=== PATIENT | female | born 1975 | race Caucasian/White ===

== ENCOUNTER 2017-02-12 18:00 | Inpatient (IN) | payer MEDICAID ==
[~2017-02-12] VITALS: Ht 162.6 cm; Wt 69.8 kg
--- NOTE | ~2017-02-12 | CON ---
PATIENT'S NAME: BONNIE MESA [facility] AGE: 41 Y [address] ROOM: [address] [place] [id number] LOCATION: GPCU ADMIT DATE: 02/12/2017 Consultation DISCHARGE DATE: FAMILY PHYSICIAN: PHYSICIAN, UNKNOWN ATTENDING PHYSICIAN: DEANNA ELIZABETH DATE OF CONSULTATION: 02/13/2017 REFERRING PHYSICIAN: Alireza Swan MD The patient was seen at 3:00 p.m. on 02/13/2017. HISTORY OF PRESENT ILLNESS: This is a 41-year-old female patient with an extensive psychiatric history including depression, anxiety, and schizoaffective disorder. She was in her usual state of health when her mother had gone out of the home early in the morning and found her back at the house around 1 lethargic and nonresponsive to stimuli. When she came to the emergency room, she was still lethargic and confused. She was found on laboratory results to have an elevation in her CPK level to 1645 as well as a white count elevation to 20.5, slight elevation in liver enzymes to 64. When she was initially seen last night and even into the morning, she was still lethargic, however, at the time of my seeing her in the afternoon today, she is fully back to her baseline. She is watching TV and answers all questions appropriately. There is a question as to whether the patient is suicidal but however the patient absolutely denies any suicidal ideations. She cannot tell me as to why she was here and really did not know why she came to the hospital. All she described right now is some feeling of being a bit beat up with some more back pain. It is known that the patient does take Ultram as well as Clozaril 100 mg in the a.m., 200 mg in the p.m., as well as fluoxetine, combination of known tramadol with fluoxetine in long- term use can be leading to a seizure. Thus, the possibility of a generalized seizure at home could certainly have been taken place. The issue as to whether the patient has a neuroleptic malignant syndrome is unlikely based upon her presentation now with normal mental status and normal tone in the limbs. PAST MEDICAL HISTORY: As mentioned, depression, anxiety, schizoaffective disorder. MEDICATIONS: At home include Clozaril 100 mg in the a.m., 200 mg in the p.m.; unknown dosing for Topamax; Ultram; trazodone; fluoxetine; meloxicam, and guanfacine. SOCIAL HISTORY: She is never . She does not have children. She lives with her mother. 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 ROOM: [place] [address] LOCATION: GPCU ADMIT DATE: 02/12/2017 Consultation DISCHARGE DATE: FAMILY PHYSICIAN: PHYSICIAN, UNKNOWN ATTENDING PHYSICIAN: DEANNA ELIZABETH or restaurant establishment. She is a pack-a-day smoker. REVIEW OF SYSTEMS: The patient is alert and oriented. Had an event of possible loss of consciousness or poor responsiveness yesterday afternoon, was taken to the emergency room and was extremely lethargic and unable to answer questions. She is back to her baseline currently. Rest of the review of systems is negative. PHYSICAL EXAMINATION: GENERAL: The patient is a healthy appearing female, in no acute distress. She is conversational. She does not appear to be paranoid and she is helpful and answering all questions. There is no errors of speech and no slurring of her speech. Cranial nerves 2 through 12 is intact. VITAL SIGNS: Pulse of 89, respiration rate 16, blood pressure 118/55, temperature is 99 degrees. NEUROLOGIC: As mentioned, cranial nerves 2 through 12 intact. Her motor exam revealed normal bulk and tone of muscles. She has normal anutey-lz-crlz and rapid alternating hand movements are intact. She does not have any pain into her limbs. She has low back pain subjectively. Normal sensory exam. Reflexes are symmetric and +2 in the biceps, triceps, brachioradialis, patellar, and ankle jerk reflexes. Plantar reflexes are downgoing. There is 1-beat of clonus noted in both feet. A CAT scan of the brain was performed, which showed no evidence of any acute stroke or any other brain pathology. IMPRESSION: The history is somewhat obscure here, but she clearly had an acute mental status change associated with lethargy. My leading thought is that she had a generalized seizure at home. My leading suspect is the use of Ultram with an SSRI. The long-term use of Ultram with antidepressants, especially greater than one year, can lead to a generalized seizure. The other thought is that potentially she may be using a benzodiazepine that we do not know about and she may have stopped this medication acutely. There is evidence for benzodiazepines in her urine though this may be somewhat cross-reactivity with another medication. She is not aware of being on a benzodiazepine. She has poor insight into the nature of her medications in general and we do not have an accurate list currently. There are no other findings on urine toxicology such as opiates, THC, cocaine, which all were negative. The patient overnight has received fluid rehydration and which is appropriate as there was some evidence of dehydration with even some myoglobinuria. There is no evidence that the patient has an infection with a negative UA. The white count elevation is possibly related to the generalized seizure along with the increase in the CPK. If this was to be a neuroleptic malignant syndrome, she really does not have signs of it presently. She has defervesced. She does PATIENT'S NAME: BONNIE MESA [facility] AGE: 41 Y [address] ROOM: [place] [address] [facility]: [facility] ADMIT DATE: 02/12/2017 Consultation DISCHARGE DATE: FAMILY PHYSICIAN: PHYSICIAN, UNKNOWN ATTENDING PHYSICIAN: DEANNA ELIZABETH not have any fever. Her limbs are of normal tone and the elevation in the CPK is fairly mild and likely more consistent with a seizure. From a standpoint of her having a generalized seizure at her age, again a withdrawal from the medication or a medication side effect such as from tramadol is certainly possible. Thus, an anti seizure medication is not recommended. We do not recommend her going back on Ultram. A substitute medication such as extra- strength Tylenol can be used sparingly. She asked me for an opiate medication, however, I do not think that is appropriate for some long-term chronic low back pain. I would be available for the hospitalist for any questions. MD GERALDINE FERREIRA/tory /[id number] d: 02/13/172010 t: 02/14/170, CONSULTATION REPORT
--- NOTE | ~2017-02-12 | DS ---
PATIENT'S NAME: BONNIE MESA [facility] AGE: 41 Y [address] ROOM: [address] [address] LOCATION: GPCU ADMIT DATE: 02/12/2017 Discharge Summary DISCHARGE DATE: 02/15/2017 FAMILY PHYSICIAN: Physician, Unknown ATTENDING PHYSICIAN: Nazario Fox PRIMARY DIAGNOSES: 1. Acute encephalopathy. 2. Questionable neuroleptic malignant syndrome versus serotonin syndrome. 3. Electrolyte imbalance. 4. Hypernatremia. 5. Nontraumatic rhabdomyolysis. 6. Leukocytosis. 7. Psychiatric disorder. PRINCIPAL PROCEDURES: None was done for the patient. LABORATORY DATA: On admission, ABG; pH 7.44, pCO2 33, and pO2 67 on room air. CPK on admission was 1838, highest level obtained was 2014, prior to discharge was 1431, troponin was less than 0.040. WBC 17.7 on admission, highest level obtained was 20.5, prior to discharge was 13.5. Sodium on admission 147, prior to discharge at the time of dictation remain 147; potassium on admission was 3.9, lowest level obtained was 3.1, was repleted; chloride on admission was stable; bicarb on admission was 15, prior to discharge was 18; creatinine on admission was 0.8, was stable throughout the hospital stay. Liver function test AST was 90 on admission, prior to discharge was 64, ALT was stable throughout the hospital stay as well. Phosphorus on admission was 2.3, prior to discharge was 2.7. UA leukocytes 25, nitrite negative, wbc 2-5. Urine drug screen positive for benzo. Procalcitonin less than 0.05. CK-MB on admission was 22.3, prior to discharge was 13.4. Microbiology no growth after one day. RADIOLOGY: Chest x-ray suspected right suprahilar pneumonia. Follow up to resolution is recommended. CT of the head unremarkable CAT scan of the brain. HOSPITAL COURSE: For history of present illness, please take a look at the H and P, which was done by Dr. Fox. The patient was admitted to Progressive Care Unit for acute encephalopathy. She did get a Neurology consult. Differentials for her acute encephalopathy included possibly neuroleptic malignant syndrome given the patient is on a huge amount of psychotic medication, which predisposes her to that and also other working differential include serotonin syndrome and she did also get a psychiatric evaluation; however, the patient was reviewed by one of the psychiatrist congressional assistant. She was managed supportively. During her hospital stay, she did not have a full- blown presentation of neuroleptic malignant syndrome. She remained afebrile PATIENT'S NAME: BONNIE MESA [facility] AGE: 41 Y [address] ROOM: [place] [address] LOCATION: GPCU ADMIT DATE: 02/12/2017 Discharge Summary DISCHARGE DATE: 02/15/2017 FAMILY PHYSICIAN: , Ralph ATTENDING PHYSICIAN: Nazario Fox throughout her hospital stay and there was no obvious muscle rigidity, her vital signs were stable throughout the hospital stay. She was essentially very drowsy during her first day of the hospital stay. Because of the circumstances in which the patient was found unresponsive and we are not sure whether there was any suicidal attempt, the patient was also put on one-to-one watch. By the next day of the hospital stay, the patient was more awake. She denied any suicidal thoughts or plan; however, she was unable to remember much of what happened the night prior to admission. She was continued on supportive measurement and her 1st night of hospital admission, she did develop some auditory hallucination, which was chronic for her; so, after the case was rediscussed with the neurologist on-call, the patient was cleared for us to restart her on all her psychotic medication as the neurologist felt possibly the patient's acute encephalopathy and drowsiness may have been secondary to seizure activity; so, the first night of hospital stay, the patient was restarted back on her psychotic medication and she was also reviewed by the psychiatric team who felt that the patient can be seen as an outpatient for modification in her medication. During her hospital stay, she did also develop some hypernatremia, which did not respond quickly to D5 water. Her mentation continued to improve. She returned back to baseline. She was able to ambulate on the hallway without much difficulty. She did not have any fever during the hospital stay; however, by the next day of her hospital stay, her white cell count did jump up remarkably to about 20,000. This was initially thought to be reactive and the next day of the hospital stay her white cell count did drop down significantly without any antibiotics given, but however, after reviewing her chest x-ray, which was done on admission with concern for probably right-lobe pneumonia; so based on this, we decided to start the patient on some clindamycin empirically probably she may have aspirated probably during the time that she was unresponsive. Her mentation had returned to baseline, she was ambulating well on the hallway; and on the day of discharge, vital signs were stable, and the patient was discharged home to follow up with her regular family doctor Dr. Shoemaker at [facility] and also to follow up with the PA at [facility] for medication adjustment. MEDICATIONS AT DISCHARGE: Include: 1. Clozapine 200 mg p.o. q.h.s. 2. Clozapine 100 mg p.o. daily. 3. Vistaril 50 mg p.o. 3 times daily. 4. Ferrous sulfate 325 mg p.o. daily. 5. Prozac 60 mg p.o. everyday. 6. Nicotine 2 mg p.o. q.2 h. p.r.n. 7. Topamax 200 mg p.o. twice daily. 8. Trazodone 50 mg p.o. at bedtime. 9. Tylenol 500 to 1 g p.o. q.6 h. p.r.n. 10. Mobic 50 mg p.o. daily. PATIENT'S NAME: BONNIE MESA [facility] AGE: 41 Y [address] ROOM: [place] [address] [facility] ADMIT DATE: 02/12/2017 Discharge Summary DISCHARGE DATE: 02/15/2017 FAMILY PHYSICIAN: Physician, Unknown ATTENDING PHYSICIAN: Nazario Fox 11. Tramadol 50 mg p.o. q.4 h. p.r.n. 12. Tenex 0.5 mg p.o. q.h.s. 13. Multivitamin 1 tablet p.o. daily. 14. Lincoln fatty acid 1 g p.o. daily. 15. Clindamycin 600 mg t.i.d. for 5 days. 16. Florastor 250 mg b.i.d. for 5 days. MD STEVEN LEIJA/tory /[id number] d: 02/14/172351 t: 02/25/171641, DISCHARGE SUMMARY
--- NOTE | ~2017-02-12 | ER ---
PATIENT'S NAME: BONNIE MESA [facility] AGE: 41 Y [address] ROOM: [place] [address] LOCATION: GPCU ADMIT DATE: 02/12/2017 ER/Outpatient Report DISCHARGE DATE: FAMILY PHYSICIAN: PHYSICIAN, UNKNOWN ATTENDING PHYSICIAN: DEANNA ELIZABETH Time of Admission: 1800 hours. The patient was seen on arrival. This history is limited by altered LOC. This is a 41-year-old female. She has extensive psychiatric history. She is in with her mom with a suspected overdose. HISTORY OF PRESENT ILLNESS: Mom reports that the patient got her prescriptions filled today. She normally keeps her medications in a safe deposit box at the [employer]. Mom states that the patient did stop by the bank and then went home took what mom presumed was her normal medications and fell asleep. Subsequently, her mom was unable to wake her up. PAST MEDICAL HISTORY: Significant for anxiety, ADHD, mood disorder, and paranoia. CURRENT MEDICATIONS: Please see list. REVIEW OF SYSTEMS: Mom states that the patient has been doing fairly well over the past few days. SOCIAL HISTORY: She is a smoker. PHYSICAL EXAMINATION: GENERAL: That of a thin female in no acute distress. She was drooling. SKIN: Warm and dry. Color was pale. She would respond to painful stimulus with some groaning. She would not answer any questions. HEAD, EARS, EYES, NOSE, AND THROAT: Revealed pupils were 2 mm, equal, and reactive. Extraocular movements are intact. Ear, nose, and throat were clear. NECK: Supple. HEART: Regular rate and rhythm. She is tachycardic. There is no murmur. LUNGS: Clear. Breath sounds were equal. ABDOMEN: Soft. EXTREMITIES: Normal. NEUROLOGIC: She was obtunded. She had increased muscle tone throughout. She was hyperreflexic with 2-beat clonus on both feet. She had a low-grade fever PATIENT'S NAME: BONNIE MESA [facility] AGE: 41 Y [address] ROOM: [address] [place] [id number] LOCATION: GPCU ADMIT DATE: 02/12/2017 ER/Outpatient Report DISCHARGE DATE: FAMILY PHYSICIAN: PHYSICIAN, UNKNOWN ATTENDING PHYSICIAN: DEANNA ELIZABETH and was tachycardic. LABORATORY DATA: Urine toxicology was positive for benzodiazepines. Comprehensive metabolic profile was notable for mild metabolic acidosis with a bicarbonate of 15. She had an elevated white blood cell count of 17,000. CPK was markedly elevated at 1838. Review of her medical records reveals that the patient has prescriptions for several psychiatric medications, most notably Clozaril 100 mg in the morning, 200 mg in the evening. She also takes Topamax, Ultram, Trazodone, fluoxetine, meloxicam, guanfacine. The patient was given 1 L of half normal saline with 100 mEq of sodium bicarbonate. ASSESSMENT: 1. Neuroleptics malignant syndrome. 2. Myoglobinuria. PLAN: Aggressive fluid resuscitation with bicarbonate-containing fluid and admit to the ICU. Dr. Elizabeth was called, who arrived promptly, evaluated the patient and made arrangements to admit the patient. Time spent caring for the patient is 45 minutes. RUPERTO LABOY MD JAMADO/modl /[id number] d: 02/13/17 0600 t: 02/14/17 0601, OUTPATIENT REPORT
--- NOTE | ~2017-02-12 | HP ---
PATIENT'S NAME: BONNIE MESA [facility] AGE: 41 Y [address] ROOM: [place] [address] [facility] ADMIT DATE: 02/12/2017 History & Physical DISCHARGE DATE: FAMILY PHYSICIAN: PHYSICIAN, UNKNOWN ATTENDING PHYSICIAN: DEANNA ELIZABETH DATE OF SERVICE: ADDENDUM: After reviewing the medical records from the [facility], the patient had been suicidal in the past. Given that the patient could have overdosed on medication at this time and given that the history was not directly obtained from the patient due to encephalopathy, I will place a consult for psychiatry given that the patient is well known to psychiatric service to further evaluate if this was a suicidal attempt with intentional drug overdose. Therefore, the patient will be on one-on-one sitter and consult Psychiatry. Even though the parents told me that her daughter was never suicidal, but I think the parents did not realize that she had been hospitalized before in [facility] for suicidal ideation or attempt. We will consult Psychiatry for further care. For all other further care, please refer to the initial history and physical for other details. MD WILTON VIRGEN/tory /[id number] D: 658 T: 043 HISTORY & PHYSICAL
--- NOTE | ~2017-02-12 | HP ---
PATIENT'S NAME: BONNIE MESA [facility] AGE: 41 Y [address] ROOM: [id number] [place], [place] [address] LOCATION: GPCU ADMIT DATE: 02/12/2017 History & Physical DISCHARGE DATE: FAMILY PHYSICIAN: PHYSICIAN, UNKNOWN ATTENDING PHYSICIAN: DEANNA ELIZABETH DATE OF SERVICE: CHIEF COMPLAINT: Altered mental status, hyperreflexia, and fever. HISTORY OF PRESENT ILLNESS: This is a 41-year-old female who currently is drowsy and cannot provide any medical history. The patient moans to sternal rub, but does not really follow commands or give any history. I personally called the patient's parents, I spoke to her mother Sumi on the phone, her phone number is [phone], and the story is that the patient has a long history of psychiatric disorder including anxiety, panic attack, attention deficit hyperactive disorder, mood disorder, schizoaffective disorder, depression, and generalized anxiety disorder. The patient has been taking these medication Clozaril, which is also known as a clozapine for awhile and today the patient went to [facility] to refill her medication the Clozaril and in the morning when the mother left the house, the patient was in her usual state of health without any problem. The mother came back home around 1:30 p.m. and found the daughter in her home sleeping. She tried to wake her up, but she was just very drowsy, lethargic, and will not really wake her up; therefore, the mother brought the patient here to the emergency room for evaluation. 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 where she found her daughter to be drowsy and sleepy and not really following commands. The patient's mother told me that she had similar episodes happen roughly 4 months ago and it went away. I personally asked the patient's mother if the patient was ever suicidal and the patient's mother told me that the patient was not suicidal. However, the patient's mother really does not know exactly the medication that she takes and she is also not sure if she overdose or she could have taken something else today. REVIEW OF SYSTEMS: Cannot be obtained from the patient given that the patient is currently lethargic. PAST MEDICAL HISTORY: 1. Anxiety disorder. 2. Attention deficit hyperactive disorder. PATIENT'S NAME: BONNIE MESA [facility] AGE: 41 Y [address] ROOM: [place] [address] LOCATION: GPCU ADMIT DATE: 02/12/2017 History & Physical DISCHARGE DATE: FAMILY PHYSICIAN: PHYSICIAN, UNKNOWN ATTENDING PHYSICIAN: DEANNA ELIZABETH 3. Mood disorder. 4. Schizoaffective disorder. 5. Depression. 6. Generalized anxiety disorder. 7. Panic attack disorder. 8. Questionable hypertension. ALLERGIES: PENICILLIN. HOME MEDICATIONS: The list has to be addressed by the medical staff with the patient's pharmacy in the morning. ER already verified with the pharmacy and currently the patient is takin. Clozaril. 2. Vistaril. 3. Topamax. 4. Tramadol. 5. Trazodone. 6. Fluoxetine. 7. Meloxicam. 8. Iron tablets. 9. Guaifenesin, the dose has to be verified given to the pharmacy by the medical staff with the pharmacy and then the list will be addressed. SOCIAL HISTORY: Cannot be obtained from the patient given that the patient is lethargic, but based on the patient's mother she told me that the patient is a social cigarette smoker, not sure how much quantity, not sure how long, but just on and off, the patient's mother denies any alcohol or any illegal drug use in the patient. FAMILY HISTORY: Father has diabetes type 2. Mother is healthy. PAST SURGICAL HISTORY: 1. Status post splenectomy. 2. Prior history of lower back surgery. PHYSICAL EXAMINATION: VITAL SIGNS: At the time of dictation, temperature 99.5, heart rate 102, respiration rate 18, blood pressure 115/87, MAP of 80, and saturation 100% on 2 L nasal cannula. GENERAL APPEARANCE: The patient is sleepy and drowsy, will moan with the sternal rub, but does not really follow commands or give any history. The PATIENT'S NAME: BONNIE MESA [facility] AGE: 41 Y [address] ROOM: [place] [address] LOCATION: GPCU ADMIT DATE: 02/12/2017 History & Physical DISCHARGE DATE: FAMILY PHYSICIAN: PHYSICIAN, UNKNOWN ATTENDING PHYSICIAN: ELIZABETH,HUERTA patient is also diaphoretic and warm to touch as well. HEENT: Pupils equally round and reactive to light. Cannot assess extraocular muscle movement given the patient does not follow commands at the moment. Anicteric sclerae. Nasal turbinates are normal bilaterally. Moist oral mucosa. NECK: No JVD. CARDIOVASCULAR: Tachycardic. Normal S1, S2. No murmur, no rubs, no gallops. RESPIRATORY: Clear to auscultation. ABDOMEN: Soft, apparently nontender given that the patient did not grimace with deep palpation, bowel sounds are present, could not appreciate any mass, no abdominal rigidity. Soft. Nondistended. EXTREMITIES: No edema in upper or lower extremities. NEUROLOGICAL: She has hyperreflexia of deep tendon reflexes in both knees and both brachial areas bilaterally. No muscle rigidity. The tone with the muscle is normal. Cannot assess sensation or muscle strength given that the patient does not really follow commands at the moment. No obvious facial droop. Cannot perform a full cranial nerve 2 through 12 examination given that the patient does not really follow commands at the moment. Babinski negative. Cannot assess pronator drift given that the patient does not follow commands. Cannot assess [id number] given that the patient does not follow commands at the moment. Cannot assess the proprioception or vibration given that the patient does not follow commands at the moment. What is remarkable is that she has hyperreflexia in both knees and also in both brachial reflexes. I do not appreciate any myoclonic jerks at the moment. SKIN: No ulcer, no rash, no cyanosis. MUSCULOSKELETAL: There is no muscle rigidity at the moment. The tongue of the muscle is normal. LABORATORY DATA: CPK 1838. White blood cell 11.7, hemoglobin 12, hematocrit 36, MCV 93.3, platelet 234, glucose 86, BUN 21, creatinine 0.8. Sodium 142, potassium 3.9, chloride 111, CO2 15, calcium 8.4, total protein 7.2, albumin 3.7, AST 19, ALT 39, alkaline phosphatase 62, total bilirubin 0.4, anion gap 19.9, GFR more than 60. Urine drug screen positive for benzodiazepine. Alcohol level negative. Tylenol level negative. Aspirin level negative. Urine test negative. IMAGING STUDIES: 1. CT of the brain without contrast on admission based on the preliminary report was negative and unremarkable, but this is preliminary report. 2. EKG on admission on February 12, 2017, at 6:08 p.m. shows sinus tachycardia, heart rate 108, OR 143 milliseconds, QRS 98 milliseconds, QTc 425 milliseconds, and some T-wave inversion in septal lateral leads. 3. Repeat EKG on February 12, 2017 at 9:33 p.m. shows sinus rhythm, heart rate 88 beats per minutes, OR interval 148 milliseconds, QRS duration 99 PATIENT'S NAME: BONNIE MESA [facility] AGE: 41 Y [address] ROOM: [id number] [place], [place] [address] LOCATION: GPCU ADMIT DATE: 02/12/2017 History & Physical DISCHARGE DATE: FAMILY PHYSICIAN: PHYSICIAN, UNKNOWN ATTENDING PHYSICIAN: DEANNA ELIZABETH, QTc 441 milliseconds, and still has a T-inversion in the septal lateral leads. I went back [facility] and I reviewed the prior EKG back on May 08, 2016 at 6:48 a.m. The EKG at that time shows sinus rhythm with a heart rate of 65 beats per minutes and OR 138 milliseconds, QRS 90 milliseconds, QTc 430 milliseconds; and at that time, do not appreciate a T-wave inversion in the septal lateral leads. 4. Chest x ray on admission: The official report is pending. No obvious effusion. Please follow up in the morning once it is read officially by the Radiologist. ASSESSMENT AND PLAN: 1. Regarding her acute encephalopathy: Differential here could include neuroleptic malignant syndrome given that the patient does have elevation of CPK and acute encephalopathy in the setting of taking clozapine and also elevation of LFT as well as hyperreflexia and tachycardia and hyperthermia on presentation. I will treat her supportively with supportive care with intravenous fluids and also monitor her very closely for vital signs and temperature and if required we will start her on the cooling blanket for hyperthermia. For every fever and hyperthermia always have to rule out infection therefore she also has a leukocytosis I will get blood culture 2 sets, ABG right now looking for pH, urinalysis and urine culture, and chest x-ray and depending on the finding, antibiotics could be considered based on the findings. I will also check ammonia level as well. She also tested positive for benzodiazepine, but her home medication does not mention anything about benzodiazepine. I went back to the [facility] and based on the [facility] medical records, she was on benzodiazepine in the past; therefore, I am not sure if she also overdosed on benzodiazepine or not. Either way, the treatment is the same will be supportive care and watch her very closely. I will put her on the ETCO monitor. Supportive care for now. Other differential could be serotonin syndrome given that she does take tramadol and also takes fluoxetine, which in combination can cause serotonin syndrome, the treatment will be the same as the supportive care. If the patient's condition does not improve, can consider starting her on bromocriptine or dantrolene for possibility of neuroleptic malignant syndrome. I will consult Neurology in the morning as well for further evaluation and recommendation. Currently, the patient's vital signs are within normal limits, the patient is sleeping, but does moan with the sternal rub. We will watch her very closely here in the PCU. Further plan will depend on clinical course. 2. Regarding her T-inversion in the septal lateral leads on EKG: Apparently, this is a new change when compared to the prior [facility] back [facility] 08[facility]. Cannot assess if she has chest pain or not given that the patient does not really follow commands right now. I will do a troponin and cpk and CK-MB right now and keep cycling every 6 hours for a total of 3 sets. The patient looks comfortable currently and does not complain of any chest pain. Further plan depends on the troponin and also I will repeat a PATIENT'S NAME: BONNIE MESA [facility] AGE: 41 Y [address] ROOM: [place] [address] LOCATION: GPCU ADMIT DATE: 02/12/2017 History & Physical DISCHARGE DATE: FAMILY PHYSICIAN: PHYSICIAN, UNKNOWN ATTENDING PHYSICIAN: DEANNA ELIZABETH repeat EKG in the morning as well. The patient does not have any prior cardiac history based on the medical records. 3. Regarding her psychiatric issues including depression and schizoaffective disorder: For now, I will stop the clozapine in the setting of a possible neuroleptic malignant syndrome and also I will stop the fluoxetine in the setting of a possible serotonin syndrome. Watch her closely. 4. Regarding her deep vein thrombosis prophylaxis: The patient will be getting Lovenox subcutaneous. Time spent in care on the day of admission 50 minutes including chart review, interviewing the patient, examining the patient, addressing all the questions and concern that the patient, I also went over the plan of care with the patient, with the nurses, and I also personally called the patient's mother by phone, her name is Sumi, phone number is [phone], I gave her all the updates, got all the history from her, I answered all her questions to her satisfaction, further plan will depend on clinical course and on all the pending labs and imaging test results. Further plan will depend on clinical course. MD WILTON VIRGEN/tory /[id number] D: 152 T: 452 HISTORY & PHYSICAL
--- NOTE | ~2017-02-12 | HP ---
PATIENT'S NAME: BONNIE MESA [facility] AGE: 41 Y [address] ROOM: [place] [address] LOCATION: GPCU ADMIT DATE: 02/12/2017 History & Physical DISCHARGE DATE: FAMILY PHYSICIAN: PHYSICIAN, UNKNOWN ATTENDING PHYSICIAN: DEANNA ELIZABETH DATE OF SERVICE: ADDENDUM: The other differential for her acute encephalopathy could be overdose of clozapine. Poison Control has already been contacted and the care will be supportive care with monitoring of the QRS on EKG; and in case there is a prolongation, we will start the patient on sodium bicarbonate drip. In case the patient overdosed fluoxetine, treatment will be the same. Monitor QRS prolongation on EKG and if it is prolonged, if the QRS is more than 120, then we will start the patient on sodium bicarbonate drip as well. Given that the patient is not providing any history, the patient could have overdosed on something else as well. Looking at her medication list, even though there is no benzodiazepine on the patient's medication list, the patient was on benzodiazepine before. Therefore, I am going to monitor her with EtCO2 monitoring for respiratory depression. I will check EKG again at 3:00 a.m. also one more time at 8 o'clock in the morning. I will get ABG right now looking for the pH. She does have bicarbonate which is low, which is consistent with acidosis. For hydration, I am going to give her D5 water in 3 amps of sodium bicarbonate running at 150 mL/h and check another CPK and basic metabolic panel and also check a lactic acid later today and one more time in the morning. The patient will be monitored closely with frequent vital sign check and also close monitoring of her clinical condition, and I will also be checking her fingerstick glucose given that she is lethargic and make sure she does not go into hypoglycemia, I will check her glucose every 4 hours for now until the morning. Further plan depends on clinical course. Further history could be obtained once the patient wakes up in the morning. If the patient does not improve as mentioned before, could try bromocriptine. If there is a concern for neuroleptic malignant syndrome, we can try dantrolene, but I will defer the decision to Neurology first for their evaluation. Consult for Neurology will be placed for tomorrow. MD WILTON VIRGEN/tory PATIENT'S NAME: BONNIE MESA [facility] AGE: 41 Y [address] ROOM: [place] [address] LOCATION: [facility] ADMIT DATE: 02/12/2017 History & Physical DISCHARGE DATE: FAMILY PHYSICIAN: PHYSICIAN, UNKNOWN ATTENDING PHYSICIAN: DEANNA ELIZABETH /[id number] D: T: 045 HISTORY & PHYSICAL
[~2017-02-12 18:00] MED LIST: AMPHETAMINE SAL20 MG PO; CLOZARIL100 MG PO; DESYREL50 MG PO; FEOSOL325 MG PO; FLEXERIL10 MG PO; GEODON60 MG PO; KLONOPIN0.5 MG PO; MOBIC15 MG PO; NICOTINE GUM2 MG PO; PERCOCET 5-3251 EACH PO; PROZAC10 MG PO; PROZAC20 MG PO; TOPAMAX200 MG PO; VISTARIL25 M1 PO; VISTARIL50 MG PO; XANAX0.5 MG PO; ZYPREXA ZYDIS5 MG PO; ZYPREXA10 MG PO; ZYPREXA5 MG PO
[2017-02-12 18:43] LABS: BARBITURATE NEGATIVE (NEGATIVE); COCAINE NEGATIVE (NEGATIVE); OPIATES NEGATIVE (NEGATIVE)
[2017-02-12 18:45] LABS: AMPHETAMINE NEGATIVE (NEGATIVE)
[2017-02-12 19:06] LABS: BASOPHIL % 0.2 %; EOSINOPHIL % 0.2 %; IMMATURE GRANULOCYTE # 0.1 K/uL (0.0-0.3); IMMATURE GRANULOCYTE % 0.5 %; LYMPHOCYTE # 1.8 K/uL (0.8-4.0); LYMPHOCYTE % 10.3 %; MCH 31.1 pg (27.0-34.0); MCHC 33.3 gm/dL (32.0-36.5); MCV 93.3 fl (83.0-98.0); MONOCYTE # 0.9 K/uL (0.0-1.0); MONOCYTE % 5.2 %; MPV 9.8 fl (9.4-12.4); NEUTROPHIL # (ANC) 14.8 K/uL (1.8-7.8); NEUTROPHIL % 83.6 %; NRBC % 0 /100WBC (0-0.00); RBC 3.86 M/uL (3.50-5.50); RDW-CV 13.9 % (11.9-14.6)
[2017-02-12 19:27] LABS: ALBUMIN 3.7 gm/dL (3.5-5.0); ALK PHOS 62 IU/L (33-138); ALT 39 IU/L (12-78); ANION GAP 19.9 (10.0-19.0); AST 90 IU/L (10-40); BLOOD UREA NITROGEN 21 mg/dL (6-24); CALCIUM 8.4 mg/dL (8.5-10.5); CHLORIDE 111 mMol/L (96-110); CO2 15 mMol/L (22-32); CREATININE 0.8 mg/dL (0.5-1.1); ESTIMATED GFR (MDRD EQUATION) > 60; SODIUM 142 mMol/L (135-145); TOTAL BILIRUBIN 0.4 mg/dL (0.0-1.5); TOTAL PROTEIN 7.2 g/dL (6.0-8.4)
[2017-02-12 19:30] LABS: POTASSIUM 3.9 mMol/L (3.7-5.1)
[2017-02-12 19:39] LABS: PLATELET COUNT 234 K/uL (150-450); WBC 17.7 K/uL (4.0-11.0)
[2017-02-12 23:00] LABS: PHOSPHORUS 2.3 mg/dL (2.5-4.9)
[2017-02-12 23:06] LABS: BICARBONATE 22.4 mmol/L (18.0-23.0); PCO2 33 mmHg (35-45); PO2 67 mmHg (80-90)
[2017-02-12 23:28] LABS: BILIRUBIN URINE NEGATIVE (NEGATIVE); BLOOD URINE NEGATIVE /UL (NEGATIVE); COLOR URINE YELLOW (YELLOW); GLUCOSE URINE NEGATIVE (NEGATIVE); KETONE URINE 15 mg/dL (NEGATIVE); LEUKOCYTES URINE 25 /UL (NEGATIVE); NITRITE URINE NEGATIVE (NEGATIVE); PROTEIN URINE NEGATIVE (NEGATIVE); TURBIDITY URINE CLEAR (CLEAR); UROBILINOGEN URINE NORMAL (NORMAL)
[2017-02-12 23:53] LABS: BACTERIA URINE NEGATIVE (NEGATIVE); EPITHELIAL URINE NEGATIVE #/HPF (NEGATIVE); RBC URINE NEGATIVE #/HPF (NEGATIVE)
[2017-02-13 02:24] LABS: INR - (THERAPEUTIC) 0.94 (0.92-1.07); PROTIME 9.9 SECONDS (9.8-11.4)
[2017-02-13 02:37] LABS: ANION GAP 11.1 (10.0-19.0); BLOOD UREA NITROGEN 14 mg/dL (6-24); CALCIUM 8.1 mg/dL (8.5-10.5); CHLORIDE 112 mMol/L (96-110); CO2 22 mMol/L (22-32); CREATININE 0.9 mg/dL (0.5-1.1); ESTIMATED GFR (MDRD EQUATION) > 60; POTASSIUM 3.1 mMol/L (3.7-5.1); SODIUM 142 mMol/L (135-145)
[2017-02-13 02:47] LABS: CPK 2015 IU/L (21-215)
[2017-02-13 08:17] LABS: BASOPHIL % 0.2 %; EOSINOPHIL # 0.1 K/uL (0.0-0.5); EOSINOPHIL % 0.6 %; HEMATOCRIT 32.9 % (33.0-46.0); HEMOGLOBIN 11.6 g/dL (10.0-15.0); IMMATURE GRANULOCYTE # 0.1 K/uL (0.0-0.3); IMMATURE GRANULOCYTE % 0.5 %; LYMPHOCYTE # 2.5 K/uL (0.8-4.0); MCH 31.7 pg (27.0-34.0); MCHC 35.3 gm/dL (32.0-36.5); MCV 89.9 fl (83.0-98.0); MONOCYTE # 1.1 K/uL (0.0-1.0); MONOCYTE % 5.1 %; MPV 9.4 fl (9.4-12.4); NEUTROPHIL # (ANC) 16.7 K/uL (1.8-7.8); NEUTROPHIL % 81.6 %; NRBC % 0 /100WBC (0-0.00); PLATELET COUNT 256 K/uL (150-450); RBC 3.66 M/uL (3.50-5.50); RDW-CV 13.8 % (11.9-14.6)
[2017-02-13 08:18] LABS: WBC 20.5 K/uL (4.0-11.0)
[2017-02-13 08:33] LABS: ALBUMIN 2.9 gm/dL (3.5-5.0); ALK PHOS 51 IU/L (33-138); ALT 34 IU/L (12-78); ANION GAP 14.2 (10.0-19.0); AST 64 IU/L (10-40); BLOOD UREA NITROGEN 9 mg/dL (6-24); CHLORIDE 113 mMol/L (96-110); CO2 21 mMol/L (22-32); CREATININE 0.7 mg/dL (0.5-1.1); ESTIMATED GFR (MDRD EQUATION) > 60; POTASSIUM 3.2 mMol/L (3.7-5.1); SODIUM 145 mMol/L (135-145); TOTAL PROTEIN 6.2 g/dL (6.0-8.4)
[2017-02-13 08:35] LABS: TOTAL BILIRUBIN 0.3 mg/dL (0.0-1.5)
[2017-02-13 08:42] LABS: CPK 1752 IU/L (21-215)
[2017-02-13] MEDS ORDERED: VISTARIL50 MG PO (09:48)
[2017-02-13] MEDS ORDERED: ULTRAM50 MG PO (09:48)
[2017-02-13] MEDS ORDERED: FISH OIL 1,0001 EACH PO (09:49)
[2017-02-13] MEDS ORDERED: THERA-VITE W/ B1 TAB PO (09:49)
[2017-02-13] MEDS ORDERED: TYLENOL EXTRA500 MG PO (09:49)
[2017-02-13] MEDS ORDERED: TENEX1 MG PO (09:49)
[2017-02-13 12:31] LABS: BLOOD UREA NITROGEN 8 mg/dL (6-24); CO2 19 mMol/L (22-32); CREATININE 0.8 mg/dL (0.5-1.1); ESTIMATED GFR (MDRD EQUATION) > 60; MAGNESIUM 2.3 mg/dL (1.8-2.6); POTASSIUM 4.1 mMol/L (3.7-5.1)
[2017-02-13 12:44] LABS: ANION GAP 13.1 (10.0-19.0); CHLORIDE 118 mMol/L (96-110); SODIUM 146 mMol/L (135-145)
[2017-02-13 12:45] LABS: CPK 1645 IU/L (21-215)
[2017-02-13 16:48] LABS: BLOOD UREA NITROGEN 10 mg/dL (6-24); CALCIUM 7.7 mg/dL (8.5-10.5); CREATININE 0.8 mg/dL (0.5-1.1); ESTIMATED GFR (MDRD EQUATION) > 60; POTASSIUM 3.8 mMol/L (3.7-5.1)
[2017-02-13 16:59] LABS: ANION GAP 15.8 (10.0-19.0); CHLORIDE 119 mMol/L (96-110); CO2 16 mMol/L (22-32); SODIUM 147 mMol/L (135-145)
[2017-02-14 04:52] LABS: BASOPHIL % 0.3 %; EOSINOPHIL # 0.5 K/uL (0.0-0.5); EOSINOPHIL % 3.4 %; HEMATOCRIT 31.7 % (33.0-46.0); HEMOGLOBIN 10.9 g/dL (10.0-15.0); IMMATURE GRANULOCYTE # 0.1 K/uL (0.0-0.3); IMMATURE GRANULOCYTE % 0.4 %; LYMPHOCYTE # 3.1 K/uL (0.8-4.0); LYMPHOCYTE % 23.1 %; MCH 31.5 pg (27.0-34.0); MCHC 34.4 gm/dL (32.0-36.5); MCV 91.6 fl (83.0-98.0); MONOCYTE # 1.1 K/uL (0.0-1.0); MONOCYTE % 7.9 %; MPV 9.6 fl (9.4-12.4); NEUTROPHIL # (ANC) 8.8 K/uL (1.8-7.8); NEUTROPHIL % 64.9 %; NRBC % 0 /100WBC (0-0.00); PLATELET COUNT 226 K/uL (150-450); RBC 3.46 M/uL (3.50-5.50); RDW-CV 14.4 % (11.9-14.6); WBC 13.5 K/uL (4.0-11.0)
[2017-02-14 05:10] LABS: BLOOD UREA NITROGEN 9 mg/dL (6-24); CALCIUM 8.4 mg/dL (8.5-10.5); CO2 18 mMol/L (22-32); CREATININE 0.7 mg/dL (0.5-1.1); ESTIMATED GFR (MDRD EQUATION) > 60; PHOSPHORUS 2.7 mg/dL (2.5-4.9); POTASSIUM 3.7 mMol/L (3.7-5.1)
[2017-02-14 05:11] LABS: ANION GAP 13.7 (10.0-19.0); CHLORIDE 119 mMol/L (96-110); SODIUM 147 mMol/L (135-145)
[2017-02-15 03:44] LABS: BASOPHIL % 0.3 %; EOSINOPHIL # 0.6 K/uL (0.0-0.5); HEMATOCRIT 32.3 % (33.0-46.0); HEMOGLOBIN 10.8 g/dL (10.0-15.0); IMMATURE GRANULOCYTE # 0.1 K/uL (0.0-0.3); IMMATURE GRANULOCYTE % 0.4 %; LYMPHOCYTE # 2.7 K/uL (0.8-4.0); LYMPHOCYTE % 19.7 %; MCHC 33.4 gm/dL (32.0-36.5); MCV 92.8 fl (83.0-98.0); MONOCYTE % 7.3 %; MPV 9.7 fl (9.4-12.4); NEUTROPHIL # (ANC) 9.5 K/uL (1.8-7.8); NEUTROPHIL % 68.3 %; NRBC % 0 /100WBC (0-0.00); PLATELET COUNT 237 K/uL (150-450); RBC 3.48 M/uL (3.50-5.50); RDW-CV 14.6 % (11.9-14.6); WBC 13.9 K/uL (4.0-11.0)
[2017-02-15 04:05] LABS: BLOOD UREA NITROGEN 12 mg/dL (6-24); CALCIUM 8.7 mg/dL (8.5-10.5); CREATININE 0.8 mg/dL (0.5-1.1); ESTIMATED GFR (MDRD EQUATION) > 60
[2017-02-15 04:06] LABS: CHLORIDE 117 mMol/L (96-110); CO2 17 mMol/L (22-32); SODIUM 144 mMol/L (135-145)
[2017-02-15] MEDS ORDERED: CLINDAMYCIN HC300 MG PO (11:24)
[2017-02-15] MEDS ORDERED: FLORASTOR250 MG PO (11:25)
== END 2017-02-15 15:25 | disposition disaster alternative care site (69) | DRG 71 ==
LOC: GMED 18:00 → GPCU 20:48
PROVIDERS: Emergency Medicine; Hospitalist; ADMIT Internal Medicine
DX: G93.40 Encephalopathy, unspecified (principal); M62.82 Rhabdomyolysis; E87.0 Hyperosmolality and hypernatremia; G21.0 Malignant neuroleptic syndrome; G25.79 Other drug induced movement disorders; E87.6 Hypokalemia; F25.9 Schizoaffective disorder, unspecified; F32.9 Major depressive disorder, single episode, unspecified; M54.5 Low back pain; G89.29 Other chronic pain; G40.909 Epilepsy, unspecified, not intractable, without status epilepticus; E86.0 Dehydration; Z88.0 Allergy status to penicillin
CPT/HCPCS: G0480; J2310; J3480; J7030; J7050; J7060

== ENCOUNTER 2017-04-22 23:51 | Emergency (ER) | payer MEDICAID ==
--- NOTE | ~2017-04-22 | ER ---
PATIENT'S NAME: BONNIE MESA [facility] AGE: 41 Y [address] ROOM: [place] [address] LOCATION: [facility] ADMIT DATE: 04/22/2017 ER/Outpatient Report DISCHARGE DATE: 04/23/2017 FAMILY PHYSICIAN: Tanner Shoemaker MD ATTENDING PHYSICIAN: Thierno Garcia Time of Arrival: 2351 hours Time of Evaluation: 0009 hours CHIEF COMPLAINT: Right ankle pain. HISTORY OF PRESENT ILLNESS: The patient is a 41-year-old female who presents to the emergency department today with chief complaint of right ankle pain. She reports this started 1 day prior to arrival. She had a toothpick that jammed into her right ankle. As she was trying to pull it out, she rolled her ankle. She has pain, swelling, and tenderness inside of her right ankle. She took Tylenol this evening. Pain is currently 10/10 in severity. PAST MEDICAL HISTORY: Mood disorder, ADHD. PAST SURGICAL HISTORY: Splenectomy and laminectomy. SOCIAL HISTORY: The patient denies any tobacco, alcohol, or illicit drug use. ALLERGIES: PENICILLIN, WHICH JUST DOES NOT WORK ON HER. MEDICATIONS: Please see list. REVIEW OF SYSTEMS: All systems are reviewed by myself and are negative with the exception as discussed in HPI and past medical history. PHYSICAL EXAMINATION: VITAL SIGNS: Weight 77.8 kg, blood pressure 105/67, pulse 95, respiratory rate 20, temperature 99.6, oxygen saturation 95% on room air. GENERAL: The patient is a 41-year-old female, who appears stated age. HEENT: Normocephalic, atraumatic. NECK: Supple. There is no nuchal rigidity. PATIENT'S NAME: BONNIE MESA [facility] AGE: 41 Y [address] ROOM: [place], [place] [address] LOCATION: [facility] ADMIT DATE: 04/22/2017 ER/Outpatient Report DISCHARGE DATE: 04/23/2017 FAMILY PHYSICIAN: Tanner Shoemaker MD ATTENDING PHYSICIAN: Thierno Garcia CARDIOVASCULAR: Regular rate and rhythm. No murmurs, rubs, or gallops. LUNGS: Clear to auscultation bilaterally. No wheezes, rales, or rhonchi. ABDOMEN: Soft, nontender, and nondistended. No rebound, rigidity, or guarding. MUSCULOSKELETAL: The patient has swelling and tenderness to palpation of the right ankle. SKIN: Does have some erythema around the medial aspect of the right ankle. There are no rashes or lesions noted. LABORATORY DATA AND X-RAYS: X-ray of the right ankle and right foot are obtained. I see no evidence of obvious foreign body. There is no evidence of fracture or dislocation noted. IMPRESSION: 1. Acute right ankle cellulitis. 2. Acute right ankle sprain of the deltoid ligament. 3. Initial visit. EMERGENCY DEPARTMENT COURSE: The patient was brought back to the examination room. Seen and evaluated by myself. The patient is given 1 g of Rocephin IV as well as tetanus. She does report that she feels like she got all of the toothpick out. There is just a small puncture wound noted, but there is surrounding erythema. Written a prescription for Keflex for home as well as Naprosyn for pain. I have discussed that I would like her to follow up in 2-3 days for reevaluation with Dr. Shoemaker. I have discussed return to care instructions including high fevers, chills, or any worsening symptoms to return to the nearest emergency department as soon as possible. The patient is agreeable without further questions at this time. We did discharge her home with some crutches. DISPOSITION: The patient is discharged home in good condition. DO MARIA R GREENE/tory /[id number] d: 04/23/17 1111 t: 04/24/17 2043, OUTPATIENT REPORT
[~2017-04-22 23:51] MED LIST changes: +CLINDAMYCIN HC300 MG PO; +FISH OIL 1,0001 EACH PO; +FLORASTOR250 MG PO; +TENEX1 MG PO; +THERA-VITE W/ B1 TAB PO; +TYLENOL EXTRA500 MG PO; +ULTRAM50 MG PO
== END 2017-04-23 01:23 | disposition disaster alternative care site (69) ==
LOC: GACC 23:51
DX: S93.421A Sprain of deltoid ligament of right ankle, initial encounter (principal); L03.115 Cellulitis of right lower limb; F39 Unspecified mood [affective] disorder; F90.9 Attention-deficit hyperactivity disorder, unspecified type; Z90.81 Acquired absence of spleen; Z98.890 Other specified postprocedural states; Z88.0 Allergy status to penicillin; Z23 Encounter for immunization; X50.1XXA Overexertion from prolonged static or awkward postures, initial encounter
CPT/HCPCS: J0696